=== PATIENT | female | born 1930 | race Caucasian/White ===

== ENCOUNTER → 2016-07-05 | Outpatient (REF) | payer MEDICARE | LOC: M LAB REF 17:06 | PROVIDERS: ATTEND Internal Medicine | DX: K58.0 Irritable bowel syndrome with diarrhea (principal) ==

== ENCOUNTER → 2016-09-22 | Outpatient (REF) | payer MEDICARE | LOC: M LAB REF 13:10 | PROVIDERS: ATTEND Internal Medicine | DX: R30.0 Dysuria (principal) ==

== ENCOUNTER 2017-05-24 15:22 | Observation (INO) | payer OTHER ==
[2017-05-24] MEDS: NS 500 ML IV (18:15)
[2017-05-24 18:45] LABS: BEDSIDE GLUCOSE 106 MG/DL (83-110)
[2017-05-24 19:10] LABS: BASO % 0.5 % (0.0-1.0); EOS # 0.3 10^3/uL (0.0-0.50); EOS % 3.5 % (0.0-3.0); HEMATOCRIT 41.8 % (36.0-47.0); HEMOGLOBIN 13.8 g/dl (12.0-16.0); IMMATURE GRANULOCYTE % 0.3 % (0-0); LYMPH # 1.9 10^3/uL (1.5-4.5); LYMPH % 25.9 % (24.0-44.0); MEAN CORPUSCULAR HEMOGLOBIN 31.2 pg (27.0-33.0); MEAN CORPUSCULAR VOLUME 94.4 fl (80.0-96.0); MONO # 0.8 10^3/uL (0.0-0.8); MONO % 10.5 % (0.0-5.0); NEUTROPHILS # 4.4 10^3/uL (1.8-7.7); NEUTROPHILS % 59.3 % (36.0-66.0); PLATELET COUNT, AUTOMATED 284 10^3/uL (150-450); RED BLOOD COUNT 4.43 10^6/uL (4.00-5.40); RED CELL DISTRIBUTION WIDTH 13.9 % (11.5-14.5); WHITE BLOOD COUNT 7.5 10^3/uL (4.0-10.0)
[2017-05-24 19:35] LABS: AMORPHOUS SEDIMENT RFX SMALL (NEGATIVE); KETONE, URINE AUTO RFX NEGATIVE (NEGATIVE); LEUKOCYTE ESTERASE UR AUTO RFX 2+ (NEGATIVE); NITRITE, URINE AUTO RFX NEGATIVE (NEGATIVE); RBC, URINE AUTO RFX 2 /HPF (0-3); SPECIFIC GRAVITY UR AUTO RFX 1.006 (1.002-1.035); SQUAM EPITHELIAL CELL UR AURFX 2 /HPF (0-6); WBC, URINE AUTO RFX 13 /HPF (0-3)
[2017-05-24 19:39] LABS: ALBUMIN 4.3 GM/DL (3.2-5.2); ALBUMIN/GLOBULIN RATIO 1.23 (1.00-1.93); ALKALINE PHOSPHATASE 71 U/L (45-117); ALT/SGPT 30 U/L (12-78); ANION GAP 4 MEQ/L (8-16); AST/SGOT 28 U/L (7-37); BILIRUBIN,DIRECT 0.2 MG/DL (0.0-0.2); BILIRUBIN,TOTAL 0.5 MG/DL (0.2-1.0); BLOOD UREA NITROGEN 17 MG/DL (7-18); CALCIUM LEVEL 9.9 MG/DL (8.8-10.2); CARBON DIOXIDE LEVEL 33 MEQ/L (21-32); CHLORIDE LEVEL 102 MEQ/L (98-107); CK-MB VALUE MASS 1.1 NG/ML (0.0-3.6); CPK CREATINE PHOSPHOKINASE 37 U/L (26-192); GLOMERULAR FILTRATION RATE > 60.0 (>32); GLUCOSE, FASTING 109 MG/DL (70-100); MB/CK RELATIVE INDEX 2.97 (< OR =4); POTASSIUM SERUM 4.5 MEQ/L (3.5-5.1); SODIUM LEVEL 139 MEQ/L (136-145); TOTAL PROTEIN 7.8 GM/DL (6.4-8.2); TROPONIN I < 0.02 NG/ML (< 0.10)
[2017-05-24] MEDS ORDERED: ONDANSETRON 4MG/2ML VIAL (J2405) IV (20:30)
[2017-05-24] MEDS ORDERED: ACETAMINOPHEN TAB 650MG DOSE (2X325MG) PO (20:30)
[2017-05-24] MEDS ORDERED: BISACODYL 5 MG TAB PO (20:30)
[2017-05-24] MEDS: ASPIRIN 81 MG ENTERIC TAB PO (22:28)
[2017-05-24] MEDS ORDERED: amLODIPine 5 MG TAB PO (23:30)
[2017-05-24] MEDS: amLODIPine 5 MG TAB PO (23:34)
[2017-05-24] MEDS: cloNIDine 0.1 MG TAB PO (23:34)
[2017-05-24] MEDS: LISINOPRIL 10 MG TAB PO (23:34)
[2017-05-25 00:59] LABS: CPK CREATINE PHOSPHOKINASE 31 U/L (26-192); MB/CK RELATIVE INDEX 3.22 (< OR =4); TROPONIN I < 0.02 NG/ML (< 0.10)
[2017-05-25 06:21] LABS: BASO % 0.6 % (0.0-1.0); EOS # 0.3 10^3/uL (0.0-0.50); EOS % 4.3 % (0.0-3.0); HEMATOCRIT 36.7 % (36.0-47.0); HEMOGLOBIN 12.1 g/dl (12.0-16.0); IMMATURE GRANULOCYTE % 0.4 % (0-0); LYMPH # 1.9 10^3/uL (1.5-4.5); LYMPH % 25.9 % (24.0-44.0); MEAN CORPUSCULAR HEMOGLOBIN 30.7 pg (27.0-33.0); MEAN CORPUSCULAR VOLUME 93.1 fl (80.0-96.0); MONO # 0.9 10^3/uL (0.0-0.8); MONO % 12.6 % (0.0-5.0); NEUTROPHILS # 4.1 10^3/uL (1.8-7.7); NEUTROPHILS % 56.2 % (36.0-66.0); PLATELET COUNT, AUTOMATED 265 10^3/uL (150-450); RED BLOOD COUNT 3.94 10^6/uL (4.00-5.40); RED CELL DISTRIBUTION WIDTH 14.1 % (11.5-14.5); WHITE BLOOD COUNT 7.3 10^3/uL (4.0-10.0)
[2017-05-25 06:49] LABS: ANION GAP 6 MEQ/L (8-16); BLOOD UREA NITROGEN 14 MG/DL (7-18); CALCIUM LEVEL 8.9 MG/DL (8.8-10.2); CARBON DIOXIDE LEVEL 30 MEQ/L (21-32); CHLORIDE LEVEL 106 MEQ/L (98-107); CPK CREATINE PHOSPHOKINASE 29 U/L (26-192); CREATININE FOR GFR 0.66 MG/DL (0.55-1.02); FREE THYROXINE INDEX 2.8 % (1.3-4.8); GLOMERULAR FILTRATION RATE > 60.0 (>32); GLUCOSE, FASTING 91 MG/DL (70-100); POTASSIUM SERUM 4.1 MEQ/L (3.5-5.1); SODIUM LEVEL 142 MEQ/L (136-145); T UPTAKE 34 % (30-39); THYROXINE (T4) 8.2 UG/DL (4.5-12.0); TROPONIN I < 0.02 NG/ML (< 0.10)
[2017-05-25 06:55] LABS: MB/CK RELATIVE INDEX 3.44 (< OR =4)
[2017-05-25] MEDS: LISINOPRIL 10 MG TAB PO (09:00)
[2017-05-25] MEDS: ACETAMINOPHEN 500 MG TAB PO (09:00)
[2017-05-25] MEDS: VITAMIN D 1,000 INTERNATIONAL UNITS TABLET PO (09:00)
[2017-05-25] MEDS: ATORVASTATIN 10 MG TAB PO (09:00)
[2017-05-25] MEDS: amLODIPine 5 MG TAB PO (09:00)
[2017-05-25] MEDS: ENOXAPARIN 30 MG/0.3 ML SYR (J1650) SC (09:00)
[2017-05-25 10:54] LABS: FOLATE 18.9 NG/ML (>5.4); TOTAL 25(OH) VITAMIN D 22.8 NG/ML (30.0-100.0)
[2017-05-25 10:54] LABS: VITAMIN B12 LEVEL 622 PG/ML (247-911)
[2017-05-25] MEDS ORDERED: CALCIUM CARBONATE 500 MG CHEW U/D PO (21:00)
== END 2017-05-25 12:44 | disposition home or self-care (01) ==
LOC: M ED 15:22 → M ED INP 20:21 → M MSPAV 22:38
PROVIDERS: General Practice
DX: R27.8 Other lack of coordination (principal); R26.0 Ataxic gait; I67.82 Cerebral ischemia; I10 Essential (primary) hypertension; E78.5 Hyperlipidemia, unspecified; I87.2 Venous insufficiency (chronic) (peripheral); K21.9 Gastro-esophageal reflux disease without esophagitis; M81.0 Age-related osteoporosis without current pathological fracture; E55.9 Vitamin D deficiency, unspecified; K44.9 Diaphragmatic hernia without obstruction or gangrene; M17.0 Bilateral primary osteoarthritis of knee; D50.9 Iron deficiency anemia, unspecified; Z96.652 Presence of left artificial knee joint; Z79.899 Other long term (current) drug therapy; Z79.82 Long term (current) use of aspirin
CPT/HCPCS: 96372

== ENCOUNTER → 2017-07-10 | Outpatient (CLI) | payer OTHER | LOC: M WHC 11:29 | DX: M85.80 Other specified disorders of bone density and structure, unspecified site (principal); M81.0 Age-related osteoporosis without current pathological fracture | CPT/HCPCS: 77080 ==

== ENCOUNTER → 2018-11-22 | Outpatient (REF) | payer MEDICARE ==
[~2018-11-22] MED LIST: ASPI81TA85 PO; ATOR1TAB19 PO; ICAPCAP PO; LISI10TA4 PO; TUMS500C PO; TYLE500T78 PO; VITA100067 PO
== END ==
LOC: M LAB REF 10:42
PROVIDERS: ATTEND Nurse Practitioner
DX: R19.7 Diarrhea, unspecified (principal)

== ENCOUNTER → 2019-11-27 | Outpatient (REF) | payer MEDICARE ==
[~2019-11-27] MED LIST changes: -ASPI81TA85 PO; +ASPI81TA86 PO
== END ==
LOC: M LAB REF 15:07 → EEVIPCON 15:07
PROVIDERS: ATTEND Otolaryngology
DX: R04.0 Epistaxis (principal)

== ENCOUNTER → 2020-07-30 | Outpatient (REF) | payer MEDICARE ==
[~2020-07-30] MED LIST changes: +LISI10TA22 PO; -LISI10TA4 PO
== END ==
LOC: M LAB REF 12:20
PROVIDERS: ATTEND Internal Medicine
DX: R30.0 Dysuria (principal)